=== PATIENT | female | born 1970 | race Caucasian/White ===

== ENCOUNTER 2016-12-09 21:46 | Emergency (ER) | payer BC ==
[~2016-12-09] VITALS: Ht 162.6 cm; Wt 101.7 kg
[~2016-12-09 21:46] MED LIST: ATOR10TA88 PO; DICY20TA35 PO; EFFSR75 PO; LORA-741 PO; LSN/10125 PO; OXYC5TAB PO; QUET1TAB30 PO; VALA500T60 PO; VENL150C56 PO
[2016-12-09 21:49] VITALS: TEMP 37.1; Ht 162.6 cm; Wt 101.7 kg
[2016-12-09 22:28] LABS: BASO % 0.5 %; BASO ABS # 0.04 K/uL (0-0.2); COMPLETE YES; EOS % 3.4 %; HEMATOCRIT 38.5 % (37-47); IG% 0.1 %; LYMPH % 41.2 %; LYMPH ABS # 3.44 K/uL (1.2-3.4); MEAN CELL VOLUME 87.1 fL (80-100); MEAN CORPUSCULAR HEMOGLOBIN 29.2 pg (25-34); MEAN CORPUSCULAR HGB CONC 33.5 g/dl (32-36); MEAN PLATELET VOLUME 10.1 fL (7.4-10.4); NEUT % 49.8 %; PLATELET COUNT 307 K/uL (130-400); RED BLOOD COUNT 4.42 M/uL (4.2-5.4); WHITE BLOOD COUNT 8.34 K/uL (4.8-10.8)
[2016-12-09] MEDS ORDERED: VENL75CA73 PO (22:32)
[2016-12-09 22:35] LABS: POINT OF CARE TROPONIN I < 0.030 ng/ml (0-0.045)
--- NOTE | 2016-12-09 22:39 | DIAGNOSTIC IMAGING REPORT ---
CHEST ONE VIEW PORTABLE CLINICAL HISTORY: Atypical chest pain COMPARISON STUDY: 10/16/2015 FINDINGS: The cardiac and mediastinal contours are normal. There is no evidence of focal pulmonary consolidation. There is no evidence of failure. No pleural effusions are visualized.[ IMPRESSION: No active disease in the chest. Electronically signed by: Jose Torres M.D. 12/09/2016 10:38 PM Dictated Date/Time: 12/09/2016 10:38 PM
[2016-12-09 22:42] LABS: BUN/CREATININE RATIO 18.8 (10-20); CALCIUM 9.4 mg/dl (8.5-10.1); CREATININE 0.8 mg/dl (0.60-1.20); POTASSIUM 3.9 mmol/L (3.5-5.1)
[2016-12-09 22:45] LABS: ALB/GLOB RATIO 1.3 (0.9-2)
[2016-12-09] MEDS ORDERED: LORAZEPAM 0.5 MG TAB SL STA (23:20)
--- NOTE | 2016-12-09 23:51 | EMERGENCY ROOM VISIT NOTE ---
History First contact with patient: 21:59 Chief Complaint: CHEST PAIN Stated Complaint: CHEST PAIN Nursing Triage Summary: Chest pain starting around 1800 tonight. Pt had migraine injection at 1300. Pt states increased shortness of breath when taking deep breaths. History of Present Illness The patient is a 46 year old female who presents to the Emergency Room with complaints of left-sided chest pain. The patient states that she had a migraine and was seen at her primary care provider today. She had an injection of sumatriptan at 13:30. She states that after she returned home, she developed left-sided chest pain while resting. She initially thought that this was a side effect of the sumatriptan. However, the patient states she became concerned when the pain persisted. The pain radiates into her left posterior ribs. The pain is constant. She rates the discomfort a 6/10. She has not taken anything for the pain. She denies shortness of breath, radiation of the pain, nausea or vomiting. The pain does increase slightly with a deep breath. The patient denies cardiac history or history of blood clots. She is not a smoker. She does not take control pills. No recent travel. Review of Systems A complete 10 point review of systems was reviewed with the patient with pertinent positives and negatives as per history of present illness. All else were negative. Past Medical/Surgical History Medical Problems: (1) Anxiety (2) Depression (3) High cholesterol (4) Hypertension (5) IBS (irritable bowel syndrome) Surgical Problems: (1) S/P appendectomy (2) S/P bilateral salpingo-oophorectomy (3) S/P tonsillectomy and adenoidectomy Family History Cancer Diabetes mellitus Heart disease High cholesterol Hypertension Social History Smoking Status: Former Smoker Alcohol Use: occasionally Marital Status: Housing Status: lives with significant other Occupation Status: employed Current/Historical Medications Scheduled Atorvastatin (Lipitor), 10 MG PO QAM Hctz/Lisinopril (Lisinopril/Hctz 10/12.5 Mg), 1 TAB PO QAM Venlafaxine Hcl (Venlafaxine Extended Rel), 262.5 MG PO DAILY Scheduled PRN Dicyclomine Hcl (Bentyl), 20 MG PO QID PRN for Abdominal Pain Quetiapine Fumarate (Seroquel), 12.5 MG PO HS PRN for Sleep Valacyclovir (Valtrex), 500 MG PO BID PRN for Cold Sores Allergies Coded Allergies: Penicillins (Verified Allergy, Intermediate, RASH AND HIVES, 12/09/16) RASH AND HIVES Nitrofurantoin (Verified Adverse Reaction, Unknown, N/V/D, 12/09/16) Physical Exam Vital Signs Date Time Temp Pulse Resp B/P (MAP) Pulse Ox O2 Delivery O2 Flow Rate FiO2 12/09/16 23:54 78 20 138/77 95 12/09/16 22:48 74 20 154/100 95 Room Air 12/09/16 22:10 Room Air 12/09/16 21:49 37.1 74 20 190/97 95 Room Air Physical Exam VITALS: Vitals are noted on the nurse's note and reviewed by myself. Vital signs stable. GENERAL: This is a 46-year-old female, in no acute distress, nondiaphoretic, well-developed well-nourished. SKIN: Capillary reflex less than 2 seconds. HEENT: Normocephalic. PERRLA. EOMI. Mucous membranes moist. Neck is supple without nuchal rigidity. HEART: Regular rate and rhythm without murmurs gallops or rubs. LUNGS: Clear to auscultation bilaterally without wheezes, rales or rhonchi. MUSCULOSKELETAL: No reproducible chest tenderness. NEURO: Patient was alert and oriented to person place and time. Medical Decision & Procedures ER Provider Diagnostic Interpretation: CHEST ONE VIEW PORTABLE CLINICAL HISTORY: Atypical chest pain COMPARISON STUDY: 10/16/2015 FINDINGS: The cardiac and mediastinal contours are normal. There is no evidence of focal pulmonary consolidation. There is no evidence of failure. No pleural effusions are visualized.[ IMPRESSION: No active disease in the chest. Laboratory Results 12/09/16 22:10 Red Blood Count 4.42, Mean Corpuscular Volume 87.1, Mean Corpuscular Hemoglobin 29.2, Mean Corpuscular Hemoglobin Concent 33.5, Mean Platelet Volume 10.1, Neutrophils (%) (Auto) 49.8, Lymphocytes (%) (Auto) 41.2, Monocytes (%) (Auto) 5.0, Eosinophils (%) (Auto) 3.4, Basophils (%) (Auto) 0.5, Neutrophils # (Auto) 4.15, Lymphocytes # (Auto) 3.44, Monocytes # (Auto) 0.42, Eosinophils # (Auto) 0.28, Basophils # (Auto) 0.04 12/09/16 22:10 Test 12/09/16 22:10 12/09/16 22:16 White Blood Count 8.34 K/uL (4.8-10.8) Red Blood Count 4.42 M/uL (4.2-5.4) Hemoglobin 12.9 g/dL (12.0-16.0) Hematocrit 38.5 % (37-47) Mean Corpuscular Volume 87.1 fL (80-100) Mean Corpuscular Hemoglobin 29.2 pg (25-34) Mean Corpuscular Hemoglobin Concent 33.5 g/dl (32-36) Platelet Count 307 K/uL (130-400) Mean Platelet Volume 10.1 fL (7.4-10.4) Neutrophils (%) (Auto) 49.8 % Lymphocytes (%) (Auto) 41.2 % Monocytes (%) (Auto) 5.0 % Eosinophils (%) (Auto) 3.4 % Basophils (%) (Auto) 0.5 % Neutrophils # (Auto) 4.15 K/uL (1.4-6.5) Lymphocytes # (Auto) 3.44 K/uL (1.2-3.4) Monocytes # (Auto) 0.42 K/uL (0.11-0.59) Eosinophils # (Auto) 0.28 K/uL (0-0.5) Basophils # (Auto) 0.04 K/uL (0-0.2) RDW Standard Deviation 41.4 fL (36.4-46.3) RDW Coefficient of Variation 12.8 % (11.5-14.5) Immature Granulocyte % (Auto) 0.1 % Immature Granulocyte # (Auto) 0.01 K/uL (0.00-0.02) Anion Gap 8.0 mmol/L (3-11) Est Creatinine Clear Calc Drug Dose 104.2 ml/min Estimated GFR () 103.9 Estimated GFR (Non- 89.7 BUN/Creatinine Ratio 18.8 (10-20) Calcium Level 9.4 mg/dl (8.5-10.1) Total Bilirubin 0.4 mg/dl (0.2-1) Aspartate Amino Transf (AST/SGOT) 27 U/L (15-37) Alanine Aminotransferase (ALT/SGPT) 64 U/L (12-78) Alkaline Phosphatase 94 U/L (45-117) Total Protein 7.0 gm/dl (6.4-8.2) Albumin 4.0 gm/dl (3.4-5.0) Globulin 3.0 gm/dl (2.5-4.0) Albumin/Globulin Ratio 1.3 (0.9-2) Bedside D-Dimer 212 ng/mlFEU (0-450) Bedside Troponin I < 0.030 ng/ml (0-0.045) Medications Administered Medications (Trade) Dose Ordered Sig/Viktoria Route Start Time Stop Time Status Last Admin Dose Admin Lorazepam (Ativan Tab) 0.5 mg NOW STAT SL 12/09/16 23:20 12/09/16 23:21 DC 12/09/16 23:23 0.5 MG ECG Rate (beats per minute): 63 Rhythm: normal sinus Findings: no acute ischemic change, no ectopy Change: no significant change ED Course The patient was evaluated as above. Labs were drawn and IV access was obtained. Patient was reevaluated and was feeling very anxious regarding her blood pressure. She was given 0.5 mg Ativan with improvement. Discharge instructions were reviewed with the patient. The patient verbalized understanding of my assessment and treatment plan and was discharged home in good condition. Medical Decision Differential diagnosis includes acute coronary syndrome, pulmonary embolism, pneumothorax, pericarditis, myocarditis, endocarditis, anxiety, musculoskeletal pain, GERD, costochondritis, pneumonia, among others. The patient is a 46-year-old female who presents today complaining of left- sided chest pain. Labs revealed no leukocytosis, anemia or concerning electrolyte abnormalities. Troponin was not elevated. D-dimer was not elevated. Chest x-ray was unremarkable. EKG was unremarkable. Patient was hypertensive but this resolved after treatment with Ativan. I think this is likely secondary to anxiety. Her chest pain may be a side effect of medication. She was instructed to follow-up with her primary care provider for further evaluation. She should return here for worsening symptoms or any new/ concerning symptoms. Based on the patient's presentation and work up, I feel the patient is stable for outpatient treatment. The patient was educated to return to the emergency department for any worsening of their current condition or new/concerning symptoms. She will follow up with her PCP. Medication reconciliation: I attest that I have personally reviewed the patient 's current medication list. Blood Pressure Screening: Patient was found to have a slightly elevated blood pressure due to circumstances. I do not believe that the patient requires hypertension monitoring. Impression Primary Impression: Left sided chest pain Departure Information Dispostion Home / Self-Care Condition GOOD Referrals Danilo Betancourt M.D. (PCP) Patient Instructions My [facility] Additional Instructions You have been treated in the Emergency Department for your Chest Pain. Laboratory results and Imaging Studies have ruled out any acute cardiac or pulmonary cause of your chest pain. For pain control, you can use the following [id number] medicines (if >12 yo): - Regular strength (325mg/tab) Tylenol (acetaminophen) 2 tabs every 4-6 hours as needed. Do not exceed 12 tablets in a 24 hour period. Avoid taking more than 4 grams (4000 mg) of Tylenol per day. This includes any other sources of acetaminophen you may take on a regular basis. - Regular strength (200 mg/tab) Advil (ibuprofen) 1-2 tabs every 4-6 hours as needed. Do not exceed a dose of 3200 mg per day. You should schedule a follow-up appointment with your Primary Care Provider in 2 -3 days for further evaluation from today's Emergency Department visit. Return to the Emergency Department if your current symptoms worsen despite treatment course outlined above, or if you develop any of the following symptoms : worsening chest pain, associated jaw/arm pain, nausea, dizziness, shortness of breath, bloody cough, or fainting.
[2016-12-09 23:54] VITALS: BP 138/77; PULSE 78; O2SAT 95
== END 2016-12-09 23:55 | disposition home or self-care (01) ==
LOC: C.EDB 21:47 → C.EDA 23:55
DX: R07.9 Chest pain, unspecified (principal); F41.9 Anxiety disorder, unspecified; F32.9 Major depressive disorder, single episode, unspecified; E78.5 Hyperlipidemia, unspecified; I10 Essential (primary) hypertension; K58.9 Irritable bowel syndrome, unspecified; Z90.722 Acquired absence of ovaries, bilateral; Z87.891 Personal history of nicotine dependence; Z83.3 Family history of diabetes mellitus; Z82.49 Family history of ischemic heart disease and other diseases of the circulatory system